=== PATIENT | female | born 1990 | race Caucasian/White ===

== ENCOUNTER 2016-05-18 08:12 | Inpatient (IN) | payer OTHER ==
[~2016-05-18] VITALS: Ht 160 cm; Wt 117.9 kg
[2016-05-18] VITALS (14 sets, daily range): BP systolic 98–114; BP diastolic 55–74; PULSE 77–120; RESP 17–18; TEMP 97.6–98.1; O2SAT 97–98
[~2016-05-18 08:12] MED LIST: FERR325T72 PO; PREN1CAP17; ZANT150T2 PO
[2016-05-18] MEDS ORDERED: LACTATED RINGER'S 1000 ML INJ 1,000 ML IV ONE (08:53)
--- NOTE | 2016-05-18 08:53 | HHI.HP ---
HPI Chief Complaint Scheduled repeat Date Seen: May 18, 2016 Time Seen: 08:45 Travel History International Travel<30 Days: No Contact w/Intl Traveler<30Days: No Known Affected Area: No History of Present Illness HPI 26-year-old female at 39/2 weeks gestational age being admitted for repeat due to LGA baby with previous . She is excited about the new baby, and is looking forward to having a baby boy. She reports good movement. She admits to feeling some contractions. She denies any vaginal bleeding or gush of fluid. She denies any pelvic pressure. She's had one vaginal delivery in the past and one . She denies any feelings of nausea and vomiting. GBS negative Para: 2 : 5 Miscarriage: 2 : 0 History Past Medical History Narrative Medical GERD Obstetric History Obstetric History One vaginal delivery 1 Past Surgical History Narrative Surgical Tonsillectomy Family History Family History: Negative Social History Alcohol Use: No Tobacco Use: No Substance Abuse: No Allergies-Medications (Allergen,Severity, Reaction): Coded Allergies: No Known Allergies (Verified , 05/11/16) Home Meds Active Scripts Ranitidine (Zantac)150 Mg [id number] Mg PO BID #60 TAB Ref 5 Prov:Niki Sargent [facility] 03/23/16 Ferrous Gluconate 325 Mg [id number] Mg PO DAILY #30 TAB Ref 5 Prov:Hanna Allen CNM [facility] 03/03/16 Reported Medications W/O A W/ Fe Asparto G (Prenate Pixie 10-0.6-0.4-200 mg)1 Cap Cap 01/09/16 Review of Systems General / Constitutional: Weight Gain, No: Fever, Weight Loss, Chills Eyes: No: Blurred Vision, Visual changes, Pain HENT: No: Headaches, Lightheadedness Cardiovascular: No: Chest Pain or Discomfort, Syncope, Edema Respiratory: No: Cough, Short of Breath Gastrointestinal: No: Nausea, Vomiting, Abdominal Pain Genitourinary: No: Urgency, Pelvic Pain, Discharge, Vaginal Bleeding Musculoskeletal: No: Weakness Skin: No Rash, No Itching Neurologic: No: Weakness, Syncope, Headache, Seizures Psychiatric: No: Anxiety, Depression Physical Exam Narrative GENERAL: Well-nourished, well-developed patient. SKIN: Warm and dry. HEAD: Normocephalic and atraumatic. EYES: No scleral icterus. No injection or drainage. ENT: No nasal drainage noted. Mucous membranes pink. Airway patent. NECK: Supple, trachea midline. No JVD. CARDIOVASCULAR: Regular rate and rhythm without murmurs, gallops, or rubs. RESPIRATORY: Breath sounds equal bilaterally. No accessory muscle use. ABDOMEN/GI: Abdomen soft, non-tender, bowel sounds present, no rebound, no guarding Gravid to 39 weeks size Fundal Height: 39 GENITOURINARY: Membranes: Intact Uterine Contractions: Every 2-3 minutes FHT's: Category: 1 Baseline: 130 Reactive: Up to 170 Variability: Moderate Decels: None EXTREMITIES: No cyanosis or edema. BACK: Nontender without obvious deformity. No CVA tenderness. NEUROLOGICAL: Awake and alert. Motor and sensory grossly within normal limits. Five out of 5 muscle strength in all muscle groups. Normal speech. Data Data Vital Signs Reviewed: Yes Assessment/Plan Problem List: (1) Intrauterine Assessment and Plan 26-year-old female at 39/2 weeks gestational age being admitted for repeat due to LGA baby with previous . 1. Intrauterine : GBS negative -Continuous heart tracing: Category 1 -Continuous monitoring for contractions: Every 3-5 minutes -Pain control with epidural -Cefazolin prior to -Anticipating for today at 10:30 WDW: Rian Smith MD R2 May 18, 2016 08:53 WDW: Rian Smith MD R2 May 18, 2016 08:53
[2016-05-18 09:03] LABS: BASOPHIL % 0.3 % (0.0-2.0); EOSINOPHIL # 0.1 TH/MM3 (0-0.4); EOSINOPHIL % 0.8 % (0.0-4.0); HEMATOCRIT 28.2 % (35.0-46.0); HEMO FLAGS AUTO DIFF; LYMPH % 21.8 % (9.0-44.0); LYMPHOCYTE # 2.3 TH/MM3 (1.0-4.8); MEAN CELL VOLUME 74.5 FL (80.0-100.0); MEAN CORPUSCULAR HEMOGLOBIN 24.1 PG (27.0-34.0); MEAN CORPUSCULAR HGB CONC 32.4 % (32.0-36.0); MONO % 9.7 % (0.0-8.0); NEUT % 67.4 % (16.0-70.0); PLATELET COUNT 189 TH/MM3 (150-450); RED BLOOD COUNT 3.78 MIL/MM3 (4.00-5.30); RED CELL DISTRIBUTION WIDTH 17.6 % (11.6-17.2); WHITE BLOOD COUNT 10.3 TH/MM3 (4.0-11.0)
[2016-05-18 09:13] LABS: BLOOD, URINE NEG (NEG); COMMENT (UR) CULT NOT INDICATED; CULTURE IF INDICATED CULT NOT INDICATED; GLUCOSE,URINE NEG (NEG); KETONE, URINE NEG (NEG); MUCUS URINE FEW /lpf (OCC); NITRITE,URINE NEG (NEG); SQUAMOUS EPITHELIAL CELL URINE 1 /hpf (0-5); URINE COLOR YELLOW (YELLW/STRAW)
[2016-05-18] MEDS ORDERED: OXYTOCIN 10 UNIT/ML AMP ONE (09:40)
[2016-05-18 09:42] LABS: SCAN/DIFF AUTO DIFF CONFIRMED
[2016-05-18] MEDS ORDERED: ceFAZolin 2 GM PREMIX 50 ML IV SCH (10:00)
[2016-05-18] MEDS: LACTATED RINGER'S 1000 ML INJ 1,000 ML IV SCH (10:09)
--- NOTE | 2016-05-18 10:09 | HHI.HP ---
History & Physical H&P Patient Name: Lina Griffin Unit Number: [id number] Date of : 1990 Patient Status: Registered Clinic Attending Doctor: Toribio Watts II, MD HPI HPI Chief Complaint For now for repeat Date Seen: Apr 30, 2016 Travel History International Travel<30 Days: No Contact w/Intl Traveler<30Days: No Known Affected Area: No History of Present Illness HPI Patient is a 26-year-old white female at 39 wks today presents for repeat she had a with her last baby, and vaginal delivery with the baby before that. She has no complaints or problems she sees Xochitl Sargent for care has no complaints or problems no bleeding leakage or contractions. Baby is active heart rate tracing reactive Para: 2 : 3 History (Limited) History Obstetric History Obstetric History Patient's previous done for distress., prior that one vaginal delivery and 2008 Past Surgical History Narrative Surgical 1 also tonsillectomy Family History Family History: Negative Social History Alcohol Use: No Tobacco Use: No Substance Abuse: No Allergies-Medications Allergies-Medications (Allergen,Severity, Reaction): Coded Allergies: No Known Allergies (Verified , 04/27/16) Home Meds Active Scripts Ranitidine (Zantac)150 Mg [id number] Mg PO BID #60 TAB Ref 5 Prov:Niki Sargent [employer] 03/23/16 Ferrous Gluconate 325 Mg [id number] Mg PO DAILY #30 TAB Ref 5 Prov:Hanna Allen CNM [facility] 03/03/16 Reported Medications W/O A W/ Fe Asparto G (Prenate Pixie 10-0.6-0.4-200 mg)1 Cap Cap 01/09/16 ROS Review of Systems General / Constitutional: No: Fever, Weight Gain, Chills, Other Eyes: No: Diploplia, Blurred Vision, Visual changes, Pain, Photophobia HENT: No: Headaches, Vertigo, Lightheadedness Cardiovascular: No: Irregular Rhythm, Chest Pain or Discomfort, Palpitations, Tachycardia, Syncope, Varicosities, Edema, Cyanosis Respiratory: No: Cough, Short of Breath, Other Gastrointestinal: No: Nausea, Vomiting, Diarrhea Genitourinary: No: Decreased Urinary Output, Oliguria Musculoskeletal: No: Limited ROM, Weakness, Cramping, Edema, Pain Skin: No Rash, No Itching, No Dryness, No Lumps, No Change in Pigmentation, No Change in Nails, No Alopecia, No Lesions Neurologic: No: Weakness, Dizziness, Syncope, Focal Abnormalities, Coordination Problem, Headache, Slurred Speech, Seizures Psychiatric: No: Depression, Suicidal Ideations, Homicidal Ideation Endocrine: No: Heat Intolerance, Cold Intolerance, Polydipsia, Polyuria, Other Physical Exam Physical Exam Narrative GENERAL: Well-nourished, well-developed patient. SKIN: Warm and dry. HEAD: Normocephalic and atraumatic. EYES: No scleral icterus. No injection or drainage. ENT: No nasal drainage noted. Mucous membranes pink. Airway patent. NECK: Supple, trachea midline. No JVD. CARDIOVASCULAR: Regular rate and rhythm without murmurs, gallops, or rubs. RESPIRATORY: Breath sounds equal bilaterally. No accessory muscle use. BREASTS: Bilateral exam showed no masses , no retractions, no nipple discharge. ABDOMEN/GI: Abdomen soft, non-tender, bowel sounds present, no rebound, no guarding Gravid to [-38] weeks size Fundal Height: [-38] GENITOURINARY: External Genitalia: intact and normal in appearance BUS glands: [-] Cervix: [-] Dilatation: [-Closed] Effacement: [-] Thick Station: [-3] Presentation: [-vtx] Membranes: [intact ] Uterine Contractions: [-none] FHT's: Category: [1-] Baseline: [144-] Reactive: [-yes] Variability: [mod-] Decels: [none-] EXTREMITIES: No cyanosis or edema. BACK: Nontender without obvious deformity. No CVA tenderness. NEUROLOGICAL: Awake and alert. Motor and sensory grossly within normal limits. Five out of 5 muscle strength in all muscle groups. Normal speech. Data Data MDM [facility] Interpretation(s) Patient is 26-year-old white female previous 1 who presents for repeat section consultation, the patient desires delivery if possible she is counseled on at length, she understands that if a uterine rupture rate with a low transverse incision which in her case is well- documented is less than 1%. She understands that risk and is willing to take that. She wants to try and deliver vaginally has done so with her first baby of her she is a very good candidate for , therefore we will schedule her C- section for a week after her due date give her a maximum time to go into labor, if that point she is not delivered then section should be done on the patient also like to have her tubes tied and this was discussed at length as well she understands that given her tubes tied is permanent procedure no more babies however is less than 100% effective 1 in 300 failure rate. She understands this and wishes to have her tubes tied a possible. Plan The patient to see her OB provider early next week continue her care and await labor she would like to to and this was encouraged for her, was discussed at length and she understands risk and benefits. Her will be scheduled for a week after her due date and if at that time we can do a tubal ligation that will be done at the same time as a . Diagnosis: previous Disposition: 01 DISCHARGE HOME Condition: Stable Toribio Watts II, MD Apr 30, 2016 13:58 Toribio Watts II, MD May 18, 2016 10:09 Toribio Watts II, MD May 18, 2016 10:09
[2016-05-18] MEDS ORDERED: EPIDURAL-DIPHENHYDRAMINE HCL 50 MG CAP PO PRN (10:20)
[2016-05-18] MEDS ORDERED: EPIDURAL-NO SYSTEMIC NARCOTICS XX PRN (10:20)
[2016-05-18] MEDS ORDERED: EPIDURAL-DIPHENHYDRAMINE HCL 50 MG/ML VIAL IV PUSH PRN (10:20)
[2016-05-18] MEDS ORDERED: EPIDURAL-NALOXONE HCL 0.4 MG/ML AMP IV PRN (10:20)
[2016-05-18] MEDS ORDERED: EPIDURAL-DO NOT ADMINISTER ANTICOAGULANTS XX PRN (10:20)
[2016-05-18] MEDS ORDERED: CITRIC ACID-SODIUM CITRATE LIQ 30 ML UDC PO SCH (10:30)
[2016-05-18] MEDS ORDERED: ONDANSETRON HCL 4 MG/2 ML VIAL ONE (11:38)
[2016-05-18] MEDS ORDERED: MORPHINE SULFATE PF 5 MG/10 ML VIAL ONE (11:38)
[2016-05-18] MEDS ORDERED: ACETAMINOPHEN 325 MG TAB PO PRN (13:15)
[2016-05-18] MEDS ORDERED: OXYTOCIN 30 UNITS-500ML PREMIX 500 ML IV ONE (13:15)
[2016-05-18] MEDS ORDERED: SODIUM CHLORIDE 0.9% FLUSH 10 ML FLUSH IV FLUSH PRN (13:15)
[2016-05-18] MEDS ORDERED: ONDANSETRON HCL 4 MG/2 ML VIAL IV PUSH PRN (13:15)
[2016-05-18] MEDS ORDERED: KETOROLAC TROMETHAMINE 60 MG/2 ML (IM) VIAL IM PRN (13:15)
[2016-05-18] MEDS ORDERED: ONDANSETRON HCL 4 MG/2 ML VIAL IV PUSH ONE (13:30)
[2016-05-18] MEDS ORDERED: LACTATED RINGER'S 1000 ML INJ 1,000 ML IV SCH (18:09)
[2016-05-18] MEDS ORDERED: KETOROLAC TROMETHAMINE 30 MG/ML (IVP) VIAL IV PUSH PRN (20:15)
[2016-05-18] MEDS ORDERED: SODIUM CHLORIDE 0.9% FLUSH 10 ML FLUSH IV FLUSH SCH (21:00)
[2016-05-18] MEDS ORDERED: OXYTOCIN 30 UNITS-500ML PREMIX 500 ML IV PRN (23:15)
[2016-05-18] MEDS: oxyCODONE/ACETAMINOPHEN 5 MG/325 MG TAB PO PRN (23:50)
[2016-05-19] MEDS: oxyCODONE/ACETAMINOPHEN 5 MG/325 MG TAB PO PRN ×5 (03:53→21:53)
[2016-05-19 06:01] LABS: AUTOMATED NEUTROPHIL # 10.9 TH/MM3 (1.8-7.7); BASOPHIL # 0.1 TH/MM3 (0-0.2); BASOPHIL % 0.4 % (0.0-2.0); EOSINOPHIL # 0.1 TH/MM3 (0-0.4); EOSINOPHIL % 0.7 % (0.0-4.0); HEMATOCRIT 22.7 % (35.0-46.0); LYMPH % 10.4 % (9.0-44.0); LYMPHOCYTE # 1.4 TH/MM3 (1.0-4.8); MEAN CELL VOLUME 75.1 FL (80.0-100.0); MEAN CORPUSCULAR HEMOGLOBIN 23.9 PG (27.0-34.0); MEAN CORPUSCULAR HGB CONC 31.9 % (32.0-36.0); MONO % 8.2 % (0.0-8.0); NEUT % 80.3 % (16.0-70.0); PLATELET COUNT 150 TH/MM3 (150-450); RED BLOOD COUNT 3.02 MIL/MM3 (4.00-5.30); RED CELL DISTRIBUTION WIDTH 17.8 % (11.6-17.2); WHITE BLOOD COUNT 13.6 TH/MM3 (4.0-11.0)
[2016-05-19 06:26] LABS: HEMO FLAGS AUTO DIFF
--- NOTE | 2016-05-19 07:26 | HHI.OB ---
Subjective Post Operative Day: 1 Remarks Postoperative day number 1. AFVSS overnight. Pain controlled. Incision not draining. Decreased lochia. Denies dysuria. No breast tenderness. She is feeding the baby via breast. Appetite good. No nausea or vomiting. Positive flatus. Negative bowel movement. Ambulating well. Denies calf pain, shortness of breath, or cough. Otherwise, she is doing well this morning and has no other complaints. Objective Vitals/I&O Vital Signs Date Time Temp Pulse Resp B/P Pulse Ox O2 Delivery O2 Flow Rate FiO2 05/18/16 18:16 17 05/18/16 18:05 17 05/18/16 17:50 18 05/18/16 16:21 18 05/18/16 14:00 18 05/18/16 13:45 18 05/18/16 12:31 77 18 110/71 97 05/18/16 12:26 97.6 05/18/16 12:24 97.6 05/18/16 12:15 81 18 109/67 97 05/18/16 12:02 98 05/18/16 12:00 106/65 05/18/16 12:00 85 18 05/18/16 11:41 93 18 98/55 05/18/16 11:41 98.1 05/18/16 08:54 120 114/74 Result Diagram: 05/19/16 0548 Objective Remarks GENERAL: Well-nourished, well-developed patient. CARDIOVASCULAR: Regular rate and rhythm without murmurs, gallops, or rubs. RESPIRATORY: Breath sounds equal bilaterally. No accessory muscle use. ABDOMEN/GI: Abdomen soft, non-tender, bowel sounds present. Incision: Clean, dry and intact. Fundus: Firm, non-tender at umbilicus. GENITOURINARY: Light to moderate bleeding. EXTREMITIES: No cyanosis or edema, non-tender, without signs of DVT. Medications and IVs Current Medications Medications (Trade) Dose Ordered Sig/Juliette Route Start Time Stop Time Status Last Admin Lactated Ringer's 1,000 ml @ 150 mls/hr Q6H40M IV 05/18/16 09:23 05/18/16 10:09 (Lr 1000 ml Inj) 1,000 ml @ 100 mls/hr Q10H IV 05/18/16 18:09 05/19/16 14:08 05/19/16 00:59 (NS Flush) 2 ml BID IV FLUSH 05/18/16 21:00 (NS Flush) 2 ml UNSCH PRN IV FLUSH 05/18/16 13:15 (Tylenol) 650 mg Q6H PRN PO 05/18/16 13:15 (Motrin) 600 mg Q6H PRN PO 05/18/16 13:15 (Percocet 5-325 Mg) 1 tab Q4H PRN PO 05/18/16 13:15 05/19/16 03:53 (Percocet 5-325 Mg) 2 tab Q4H PRN PO 05/18/16 13:15 (M-M-R Ii Inj) 0.5 ml ONCE ONCE SQ 05/19/16 16:00 05/19/16 16:01 (Boostrix Inj) 0.5 ml ONCE ONCE IM 05/19/16 16:00 05/19/16 16:01 (Zofran Inj) 4 mg Q6H PRN IV PUSH 05/18/16 13:15 05/18/16 23:50 Miscellaneous Information NO SYSTEMIC NARCOTICS TO BE GIVEN FO... UNSCH PRN XX 05/18/16 10:20 05/19/16 10:19 (Narcan Inj) 0.4 mg UNSCH PRN IV 05/18/16 10:20 05/19/16 10:19 (Benadryl Inj) 25 mg Q6H PRN IV PUSH 05/18/16 10:20 05/19/16 10:19 (Benadryl) 50 mg Q6H PRN PO 05/18/16 10:20 05/19/16 10:19 Miscellaneous Information ALL NURSING DEPARTMENTS UNSCH PRN XX 05/18/16 10:20 05/19/16 10:19 (Toradol Inj) 30 mg Q6H PRN IV PUSH 05/18/16 20:15 05/23/16 20:14 05/19/16 03:52 Assessment/Plan Problem List: (1) Intrauterine (2) delivery delivered (3) care following delivery Assessment and Plan 26 y/o female who is POD# 1 s/p CXN. -Continue routine care. -Percocet and Motrin PRN pain. -Encouraged OOB. Advised pelvic rest for 6 wks. Will need a f/u appt. in 1 wk for incision check. -Re: ctrl, she had her tubes tide. -D/c in 1-2 more days. Anemia: Hemaglobin 7.21 -Started on Iron -Repeat CBC for tomorrow wdw OB attending Rian Mendoza MD R2 May 19, 2016 07:26
[2016-05-19 08:18] LABS: BANDS 19 % (0-6); EOSINOPHILS 1 % (0-4); NEUTROPHIL # MANUAL DIFF 11.2 TH/MM3 (1.8-7.7); POLYS (SEG NEUTROPHILS) 63 % (16-70); WBC DIFF SAMPLE 100
[2016-05-19 08:19] LABS: OVALOCYTES 1+ (NORMAL); PLATELET ESTIMATE SMEAR LOW (NORMAL); PLATELET MORPHOLOGY ENLARGED (NORMAL); SCAN/DIFF FINAL DIFF MANUAL
[2016-05-19] MEDS: FERROUS SULFATE 325 MG (65 MG ELEMENTAL IRON) TAB PO SCH ×3 (09:26→17:45)
[2016-05-19] MEDS: IBUPROFEN 600 MG TAB PO PRN ×3 (09:52→21:54)
[2016-05-19] MEDS: LACTATED RINGER'S 1000 ML INJ 1,000 ML IV SCH (12:03)
[2016-05-19] MEDS ORDERED: MEASLES, MUMPS, RUBELLA VACCINE 0.5 ML VIAL SQ ONE (16:00)
[2016-05-19] MEDS ORDERED: DIPHTH/TETANUS/ACEL PERTUSSIS (BOOSTER) 0.5 ML VIAL/PFS IM ONE (16:00)
[2016-05-19 20:00] VITALS: BP 101/58; PULSE 86; RESP 18; TEMP 97.9
[2016-05-20] MEDS: IBUPROFEN 600 MG TAB PO PRN ×2 (04:49→14:15)
[2016-05-20] MEDS: oxyCODONE/ACETAMINOPHEN 5 MG/325 MG TAB PO PRN ×3 (04:52→14:15)
[2016-05-20 06:19] LABS: HEMATOCRIT 22.8 % (35.0-46.0); MEAN CELL VOLUME 75.8 FL (80.0-100.0); MEAN CORPUSCULAR HEMOGLOBIN 24.4 PG (27.0-34.0); MEAN CORPUSCULAR HGB CONC 32.2 % (32.0-36.0); PLATELET COUNT 184 TH/MM3 (150-450); RED BLOOD COUNT 3.01 MIL/MM3 (4.00-5.30); RED CELL DISTRIBUTION WIDTH 17.7 % (11.6-17.2); WHITE BLOOD COUNT 13.6 TH/MM3 (4.0-11.0)
[2016-05-20 06:32] LABS: REVIEW FLAG FINAL
[2016-05-20] MEDS ORDERED: IBUP-232 PO (07:10)
[2016-05-20] MEDS ORDERED: OXYC1TAB63 PO (07:10)
[2016-05-20] MEDS ORDERED: FERR325T PO (07:10)
--- NOTE | 2016-05-20 07:12 | HHI.DCPOC ---
Discharge Care Plan Diagnosis: (1) delivery delivered (2) care following delivery Report Symptoms to Your Doctor -Temperate above 100.5 degrees -Redness, of incision or excessive or foul smelling drainage -Unusual pain or calf pain -Increased vaginal bleeding -Painful or difficulty urinating -Feelings of extreme sadness or anxiety after 2 weeks Goals to Promote Your Health * To prevent worsening of your condition and complications * To maintain your health at the optimal level Follow up with OB in 1 week Avoid lifting anything heavier then baby tell cleared by OB Pelvic rest x 6 weeks Directions to Meet Your Goals Take your medications as prescribed Follow your dietary instruction Follow activity as directed Ensure plenty of rest for recovery Drink fluids for hydration Keep your appointments as scheduled Take your immunizations and boosters as scheduled If your symptoms worsen call your PCP, if no PCP go to Urgent Care Center or Emergency Room Smoking is Dangerous to Your Health. Avoid second hand smoke Call the 24-hour crisis hotline for domestic abuse at Rian Mendoza MD R2 May 20, 2016 07:12
--- NOTE | 2016-05-20 07:14 | HHI.OB ---
Subjective Post Operative Day: 2 Remarks Postoperative day number 2. AFVSS overnight. Pain control. Incision not draining. Decreased lochia. Denies dysuria. No breast tenderness. She is feeding the baby via breast. Appetite good. No nausea or vomiting. Positive flatus. Negative bowel movement. Ambulating well. Denies calf pain, shortness of breath, or cough. Otherwise, she is doing well this morning and has no other complaints. Objective Vitals/I&O Vital Signs Date Time Temp Pulse Resp B/P Pulse Ox O2 Delivery O2 Flow Rate FiO2 05/19/16 20:00 97.9 05/19/16 20:00 101/58 05/19/16 20:00 86 18 Result Diagram: 05/20/16 0553 Objective Remarks GENERAL: Well-nourished, well-developed patient. CARDIOVASCULAR: Regular rate and rhythm without murmurs, gallops, or rubs. RESPIRATORY: Breath sounds equal bilaterally. No accessory muscle use. ABDOMEN/GI: Abdomen soft, non-tender, bowel sounds present. Incision: Clean, dry and intact. Fundus: Firm, non-tender at umbilicus. GENITOURINARY: Light to moderate bleeding. EXTREMITIES: No cyanosis or edema, non-tender, without signs of DVT. Medications and IVs Current Medications Medications (Trade) Dose Ordered Sig/Juliette Route Start Time Stop Time Status Last Admin (Lr 1000 ml Inj) 1,000 ml @ 150 mls/hr Q6H40M IV 05/18/16 09:23 05/18/16 10:09 (NS Flush) 2 ml BID IV FLUSH 05/18/16 21:00 (NS Flush) 2 ml UNSCH PRN IV FLUSH 05/18/16 13:15 (Tylenol) 650 mg Q6H PRN PO 05/18/16 13:15 (Motrin) 600 mg Q6H PRN PO 05/18/16 13:15 05/20/16 04:49 (Percocet 5-325 Mg) 1 tab Q4H PRN PO 05/18/16 13:15 05/19/16 13:44 (Percocet 5-325 Mg) 2 tab Q4H PRN PO 05/18/16 13:15 05/20/16 04:52 (Zofran Inj) 4 mg Q6H PRN IV PUSH 05/18/16 13:15 05/18/16 23:50 (Toradol Inj) 30 mg Q6H PRN IV PUSH 05/18/16 20:15 05/23/16 20:14 05/19/16 03:52 (Ferrous Sulfate) 325 mg TID PO 05/19/16 09:00 05/19/16 17:45 Assessment/Plan Problem List: (1) Intrauterine (2) delivery delivered (3) care following delivery Assessment and Plan 26 y/o female who is POD# 3 s/p CXN. -Continue routine care. -Percocet and Motrin PRN pain. -Encouraged OOB. Advised pelvic rest for 6 wks. Will need a f/u appt. in 1 wk for incision check. -Re: ctrl, she had her tubes tide. -D/c plan for today or tomorrow Anemia: Hemaglobin 7.3 -Continue Iron wdw OB attending Discharge Planning Discharge home today or tomorrow Rian Mendoza MD R2 May 20, 2016 07:14
[2016-05-20] MEDS ORDERED: DOCUSATE SODIUM 50 MG/SENNA 8.6 MG TAB PO PRN (07:15)
[2016-05-20] MEDS ORDERED: PERI8.6T PO (07:16)
[2016-05-20 08:15] VITALS: BP 109/60; PULSE 91; RESP 18; TEMP 97.6
[2016-05-20] MEDS: FERROUS SULFATE 325 MG (65 MG ELEMENTAL IRON) TAB PO SCH ×2 (09:31→14:15)
--- NOTE | 2016-05-20 10:25 | MP ---
cc: MICHAEL WATTS MD DATE OF SURGERY: 05/18/2016 PREOPERATIVE DIAGNOSIS: Previous section at term, desires repeat section and tubal ligation for sterilization. POSTOPERATIVE DIAGNOSIS: Previous section at term, desires repeat section and tubal ligation for sterilization. PROCEDURE PERFORMED: Repeat low transverse section, tubal ligation. SURGEON Michael Watts MD ANESTHESIA Spinal. PREOP NOTE The patient is a 26-year-old white female at 39-weeks, G5, P2, previous section x 1 and wants a repeat section and tubal ligation. PROCEDURE The patient was taken to the operating room and placed in the supine position on the operating table. After adequate spinal anesthesia was administered she was prepped and draped for abdominal surgery. A previous Pfannenstiel incision under the pannus was left alone and a new incision was made higher in the abdomen. This Pfannenstiel was carried to the fascia sharply. The fascia was dissected off the rectus muscle and the rectus split in the midline. Peritoneal cavity was entered sharply. The incision was extended superior and inferiorly. The bladder blade was placed over the edge of the incision and the visceral peritoneum was reflected off the lower uterine segment and placed on a bladder blade. Transverse hysterotomy was made and extended bluntly bilaterally and clear amniotic fluid was noted at that time. A male was delivered at 10:42, weight 3810 grams, Apgars 8 and 9. There were no complications. Cord blood was obtained. Placenta was manually extracted. The uterus was exteriorized and then the hysterotomy closed in running layer of Chromic followed by imbricating suture of the same. The bladder was reapproximated with a running layer of 2-0 Vicryl. The uterus was then elevated somewhat and the left tube was grabbed with the Morganza clamp and elevated. The avascular section of the mesosalpinx was punctured through with a hemostat and two sutures brought through that window. Tube was tied on that tube and the intervening segment cut and sent to pathology. The same was done on the opposite side without difficulty. The uterus was replaced in the peritoneal cavity after suctioning the cul-de-sac gutters. The parietal peritoneum was closed with running layer of 2-0 Vicryl. Rectus muscle was reapproximated with stick ties of Chromic. The fascia was closed with running layer of Vicryl. Subcutaneous tissue was reapproximated with a running layer of 3-0 Plain gut suture. The skin was closed with 3-0 Monocryl subcuticular stitch. Compression dressing was applied. ESTIMATED BLOOD LOSS 500 ccs. COMPLICATIONS None. COUNTS Sponge and needle count correct x 2. CONDITION The patient was taken to recovery in stable condition. MD CUONG Yang/MELODIE /11:36 AM /10:04 AM
== END 2016-05-20 16:32 | disposition home or self-care (01) | DRG 766 ==
LOC: H2EB 08:12 → H1EA 12:52
PROVIDERS: ADMIT Obstetrics & Gynecology Maternal & Fetal Medicine; ATTEND Obstetrics & Gynecology Maternal & Fetal Medicine
PROC: 10D00Z1 Extraction of Products of Conception, Low, Open Approach (ICD-10-PCS; principal; 2016-05-18)
PROC: 0UB70ZZ Excision of Bilateral Fallopian Tubes, Open Approach (ICD-10-PCS; 2016-05-18)
DX: O34.211 Maternal care for low transverse scar from previous cesarean delivery (principal); D64.9 Anemia, unspecified; O99.02 Anemia complicating childbirth; O99.62 Diseases of the digestive system complicating childbirth; K21.9 Gastro-esophageal reflux disease without esophagitis; Z3A.39 39 weeks gestation of pregnancy; Z37.0 Single live birth; Z30.2 Encounter for sterilization
CPT/HCPCS: 59025; 81001; 85007; 85025; 85027; 86850; 86900; 86901; 88302; 90715; J0690; J1885; J2274; J2405; J2590; J7120